=== PATIENT | male | born 1955 | race African-American/Black ===

== ENCOUNTER 2018-05-22 14:48 | Emergency (ER) | payer OTHER ==
[~2018-05-22] VITALS: Ht 182.9 cm; Wt 80.6 kg
[~2018-05-22 14:48] MED LIST: ALBU17AE27 IH; AMLO-511 PO; CLON0.1T PO; HYDR25TA PO; LISI20TA PO; PHEN100C23 PO
[2018-05-22] MEDS ORDERED: NiCARDipine HCL 50 MG in DEXTROSE 5%-WATER 230 ML IV PRN (15:00)
[2018-05-22] MEDS ORDERED: NICARDipine 20 MG/DEXT,ISO-OSM 200 ML IV PRN (15:00)
[2018-05-22 15:27] LABS: CALCIUM, TOTAL 8.6 mg/dL (8.8-10.5); CREATININE 3.24 mg/dL (0.60-1.30); POTASSIUM 3.1 mmol/L (3.5-5.1)
[2018-05-22 15:29] LABS: BASOPHILS % (AUTO) 1.3 % (0.0-2.0); EOSINOPHILS % (AUTO) 1.8 % (1.0-6.0); HEMOGLOBIN 14.7 g/dL (13.5-17.5); LYMPHOCYTES # (AUTO) 0.3 K/uL (1.0-4.8); LYMPHOCYTES % (AUTO) 6.8 % (22.0-44.0); MEAN CORPUSCULAR HEMOGLOBIN 28.6 pg (26.0-34.0); MEAN CORPUSCULAR HGB CONC 34.3 G/dL (31.0-37.0); MEAN CORPUSCULAR VOLUME 84 fL (80-100); MONOCYTES # (AUTO) 0.3 K/uL (0.1-1.0); MONOCYTES % (AUTO) 6.5 % (2.0-9.0); NEUTROPHILS # (AUTO) 3.4 K/uL (1.8-7.7); NEUTROPHILS % (AUTO) 83.6 % (40.0-70.0); PLATELET COUNT (AUTO) 164 K/uL (150-450); RED BLOOD CELL COUNT(AUTO) 5.14 MIL/uL (4.50-5.90); RED CELL DISTRIBUTION WIDTH 13.7 % (11.5-14.5)
[2018-05-22] MEDS ORDERED: LORazepam 2 MG/ML VIAL ONE (15:29)
[2018-05-22] MEDS ORDERED: LevETIRAcetam 1,000 MG in DEXTROSE 5%-WATER 100 ML IV ONE (15:30)
[2018-05-22] MEDS ORDERED: LORazepam 2 MG/ML VIAL IVP ONE (15:30)
[2018-05-22 15:34] LABS: INR 1.1 (0.9-1.1); PROTHROMBIN TIME 11.2 SEC (9.4-11.6)
[2018-05-22 15:36] LABS: ALBUMIN 2.7 g/dL (3.4-5.0); BILIRUBIN,TOTAL 0.7 mg/dL (0.1-1.0); TOTAL PROTEIN, SERUM 6.1 g/dL (6.4-8.2)
[2018-05-22] MEDS ORDERED: IOVERSOL 320 MG/ML 100 ML VIAL ONE (15:47)
[2018-05-22] MEDS ORDERED: SODIUM CHLORIDE 0.9% 100 ML ONE (15:48)
[2018-05-22 16:43] LABS: PHENYTOIN (DILANTIN) 0.8 mcg/mL (10.0-20.0)
[2018-05-22 17:30] VITALS: BP 184/101
== END 2018-05-22 17:00 | disposition short-term general hospital (02) ==
LOC: EMS 14:49
DX: I61.9 Nontraumatic intracerebral hemorrhage, unspecified (principal); R29.818 Other symptoms and signs involving the nervous system; G81.04 Flaccid hemiplegia affecting left nondominant side; I10 Essential (primary) hypertension; J45.909 Unspecified asthma, uncomplicated; G89.29 Other chronic pain; Z87.891 Personal history of nicotine dependence; Z88.8 Allergy status to other drugs, medicaments and biological substances; Z79.899 Other long term (current) drug therapy
CPT/HCPCS: 51702; 70450; 70496; 71045; 80053; 80185; 82962; 84484; 85025; 85610; 85730; 86850; 86900; 86901; 93005; 96374; 99291; J0712; J7050; J7060; Q9967; J2060; J3490